=== PATIENT | female | born 1990 | race African-American/Black ===

== ENCOUNTER 2021-12-09 20:26 | Emergency (ER) | payer MEDICAID ==
[~2021-12-09] VITALS: Ht 162.6 cm; Wt 59.0 kg
[2021-12-09 22:15] VITALS: BP 137/90
[2021-12-09] MEDS ORDERED: TRAMADOL 50MG TABLET PO ONE (22:15)
[2021-12-09] MEDS ORDERED: IBUPROFEN 600MG TABLET PO ONE (22:15)
[2021-12-09] MEDS ORDERED: IBUP-2029 MT (23:24)
[2021-12-09] MEDS ORDERED: CYCL25PO15 MT (23:24)
[2021-12-11] MEDS ORDERED: CYCL25PO15 MT (11:04)
[2021-12-11] MEDS ORDERED: IBUP-2029 MT (11:04)
== END 2021-12-09 23:48 ==
LOC: ER 20:26
DX: S93.692A Other sprain of left foot, initial encounter (principal); V49.59XA Passenger injured in collision with other motor vehicles in traffic accident, initial encounter; Y93.89 Activity, other specified; Y92.89 Other specified places as the place of occurrence of the external cause; Y99.8 Other external cause status
CPT/HCPCS: 73610; 73630; 81025; 99284

== ENCOUNTER 2021-12-11 20:02 | Emergency (ER) | payer MEDICAID ==
[~2021-12-11] VITALS: Ht 152.4 cm; Wt 62.3 kg
[~2021-12-11 20:02] MED LIST: CYCL25PO15 MT; IBUP-2029 MT
[2021-12-11] MEDS ORDERED: CYCL10TA21 MT (22:03)
[2021-12-11 22:13] VITALS: BP 149/91
== END 2021-12-11 22:13 | disposition home or self-care (01) ==
LOC: ER 20:02
DX: R20.2 Paresthesia of skin (principal)
CPT/HCPCS: 99281